=== PATIENT | female | born 1970 | race American Indian/Alaskan Native ===

== ENCOUNTER 2020-11-23 13:56 | Emergency (ER) | payer SELFPAY ==
[2020-11-23 14:31] VITALS: BP 143/71
--- NOTE | 2020-11-23 17:13 | Emergency Department Report ---
ED General Adult HPI - General Chief complaint: Rectal Pain Stated complaint: ANAL BLEEDING Time Seen by Provider: 11/23/20 15:46 Source: patient Mode of arrival: Ambulatory Limitations: No Limitations - History of Present Illness Initial comments: Patient is a 50-year-old female presents emergency room complaints of a possible hemorrhoid that began a week ago. Patient states that she does feel a lump present to the anal opening. She states that she has been using Preparation H and doing sitz bath without much relief. She states beginning yesterday she saw a scant amount of bright red blood on the toilet paper. She denies any hematochezia or melena. She denies any abdominal pain, fever, nausea, vomiting, diarrhea, pus in the stool. No past medical history. No allergies to medications. She states that she is currently going through menopause. - Related Data Previous Rx's Medication Instructions Recorded Last Taken Type Docusate Sodium [Colace] 100 mg PO BID #30 capsule 11/23/20 Unknown Rx Hydrocort/Pramoxine [Proctofoam-Hc] 1 applicatio [place] BID #1 can 11/23/20 Unknown Rx Hydrocortisone [Anusol-Hc 2.5% TOP 1 applicatio RC TID #1 cream..g. 11/23/20 Unknown Rx CREAM] Lidocaine [Lidocaine GEL] 1 applicatio TP TID #30 gel..gram. 11/23/20 Unknown Rx Allergies Allergy/AdvReac Type Severity Reaction Status Date / Time No Known Allergies Allergy Unverified 11/23/20 14:28 ED Review of Systems ROS: Stated complaint: ANAL BLEEDING Other details as noted in HPI Comment: All other systems reviewed and negative ED Past Medical Hx - Past Medical History Previous Medical History?: No - Surgical History Past Surgical History?: No - Social History Smoking Status: Never Smoker Substance Use Type: None - Medications Home Medications: Home Medications Medication Instructions Recorded Confirmed Last Taken Type Docusate Sodium [Colace] 100 mg PO BID #30 capsule 11/23/20 Unknown Rx Hydrocort/Pramoxine [Proctofoam-Hc] 1 applicatio IL BID #1 can 11/23/20 Unknown Rx Hydrocortisone [Anusol-Hc 2.5% TOP 1 applicatio RC TID #1 cream..g. 11/23/20 Unknown Rx CREAM] Lidocaine [Lidocaine GEL] 1 applicatio TP TID #30 gel..gram. 11/23/20 Unknown R x ED Physical Exam - General Limitations: No Limitations General appearance: alert, in no apparent distress - Head Head exam: Present: atraumatic, normocephalic - Eye Eye exam: Present: normal appearance - ENT ENT exam: Present: mucous membranes moist - Respiratory Respiratory exam: Absent: respiratory distress, accessory muscle use - Rectal Rectal exam: Present: other (software development project manager: APARNA wiggins, there is a 1.5 cm external non thrombosed hemorrhoid, no active bleeding) - Neurological Exam Neurological exam: Present: alert, oriented X3 - Psychiatric Psychiatric exam: Present: normal affect, normal mood - Skin Skin exam: Present: warm, dry, intact ED Course Vital Signs 11/23/20 11/23/20 14:29 14:31 Temperature 97.5 F L Pulse Rate 77 Respiratory 18 Rate Blood Pressure 143/71 [Right] O2 Sat by Pulse 100 Oximetry ED Medical Decision Making - Lab Data Vital Signs 11/23/20 11/23/20 14:29 14:31 Temperature 97.5 F L Pulse Rate 77 Respiratory 18 Rate Blood Pressure 143/71 [Right] O2 Sat by Pulse 100 Oximetry - Medical Decision Making Patient is a 50-year-old female presents emergency room complaints of a possible hemorrhoid that began a week ago. Patient states that she does feel a lump present to the anal opening. She states that she has been using Preparation H and doing sitz bath without much relief. She states beginning yesterday she saw a scant amount of bright red blood on the toilet paper. She denies any hematochezia or melena. She denies any abdominal pain, fever, nausea, vomiting, diarrhea, pus in the stool. No past medical history. No allergies to medications. She states that she is currently going through menopause. Vitals are normal. On exam:software development project manager: APARNA wiggins, there is a 1.5 cm external non thrombosed hemorrhoid, no active bleeding. Patient given prescription for Proctofoam, Anusol, Colace, lidocaine gel. Advised patient Please use medication as prescribed. Follow-up with your primary care doctor. Follow-up with a GI doctor. Return to emergency room for any worsening symptoms. Critical care attestation.: If time is entered above; I have spent that time in minutes in the direct care of this critically ill patient, excluding procedure time. ED Disposition Clinical Impression: External hemorrhoid Disposition: DC-01 TO HOME OR SELFCARE Is pt being admited?: No Does the pt Need Aspirin: No Condition: Stable Instructions: How to Take a Sitz Bath, Hemorrhoids Additional Instructions: Please use medication as prescribed. Follow-up with your primary care doctor. Follow-up with a GI doctor. Return to emergency room for any worsening symptoms. Prescriptions: Hydrocortisone [Anusol-Hc 2.5% TOP CREAM] 1 applicatio RC TID #1 cream..g. Docusate Sodium [Colace] 100 mg PO BID #30 capsule Lidocaine [Lidocaine GEL] 1 applicatio TP TID #30 gel..gram. Hydrocort/Pramoxine [Proctofoam-Hc] 1 applicatio IL BID #1 can Referrals: PRIMARY CAREMD [Primary Care Provider] - 2-3 Days DANIA CARRASQUILLO MD [Staff Physician] - 2-3 Days [facility] [Provider Group] - 2-3 Days [facility] [Provider Group] - 2-3 Days Time of Disposition: 17:10 Print Language: PANAMANIAN
== END 2020-11-23 17:36 | disposition home or self-care (01) ==
LOC: ED 13:56
DX: K64.4 Residual hemorrhoidal skin tags (principal); Z79.899 Other long term (current) drug therapy
CPT/HCPCS: 99282